=== PATIENT | male | born 1995 | race Caucasian/White ===

== ENCOUNTER 2017-01-25 10:26 | Emergency (ER) | payer OTHER ==
[~2017-01-25] VITALS: Ht 200.7 cm; Wt 82.6 kg
[2017-01-25] MEDS ORDERED: SODIUM CHLORIDE 0.9% 1,000ML IVBOLUS ONE (11:00)
[2017-01-25] MEDS ORDERED: SODIUM CHLORIDE FLUSH 10ML SYR IVF ONE (11:00)
[2017-01-25] MEDS ORDERED: LIDOCAINE 2% VISCOUS 15 ML UDC MM ONE (11:00)
[2017-01-25 11:30] LABS: ASPARTATE AMINO TRANSFERASE 16 U/L (15-37); BLOOD UREA NITROGEN 15 mg/dL (7-18)
[2017-01-25 12:03] VITALS: BP 128/78
[2017-01-28 06:07] LABS: HSV 1 IGG TYPE SPECIFIC 1.55 index (0.00-0.90); HSV 2 IGG TYPE SPECIFIC <0.91 index (0.00-0.90)
[2017-01-28 13:06] LABS: HSV 1 IGM TYPE SPECIFIC <1:10 titer (<1:10); HSV 2 IGM TYPE SPECIFIC <1:10 titer (<1:10)
== END 2017-01-25 12:51 | disposition home or self-care (01) ==
LOC: ED 10:54
DX: K12.1 Other forms of stomatitis (principal); B08.4 Enteroviral vesicular stomatitis with exanthem
CPT/HCPCS: 36415; 80053; 85025; 86695; 86696; 96360; 99284; J7030